=== PATIENT | male | born 1950 | race African-American/Black ===

== ENCOUNTER 2016-05-02 21:06 | Emergency (ER) | payer OTHER ==
[2016-05-02] MEDS ORDERED: XYLOCAINE CARDIAC IV ONE ×2 (22:10→22:21)
[2016-05-02] MEDS ORDERED: AMIDATE IV ONE ×2 (22:10→22:21)
[2016-05-02] MEDS ORDERED: ZEMURON IV ONE ×2 (22:10→22:21)
[2016-05-02] MEDS ORDERED: SUBLIMAZE IV ONE (22:18)
[2016-05-02] MEDS ORDERED: VASELINE LIP THERAPY TP PRN (22:21)
[2016-05-02] MEDS ORDERED: ARTIFICIAL TEARS OPHTH OINT OU PRN (22:21)
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
[2016-05-02 22:34] LABS: Hematocrit 46.1 % (35.5-45.6); Hemoglobin 14.9 gm/dl (11.8-15.2); Mean Corpuscular HGB Conc 32 % (32-34); Mean Corpuscular Hemoglobin 26 pg (28-32); Mean Corpuscular Volume 81 fl (84-94); Platelet Count 276 K/mm3 (140-440); Red Blood Count 5.68 M/mm3 (3.65-5.03); Red Cell Distribution Width 13.9 % (13.2-15.2)
[2016-05-02 22:41] LABS: White Blood Count 24.6 K/mm3 (4.5-11.0)
[2016-05-02 22:44] LABS: INR 0.94 (0.87-1.13)
[2016-05-02 22:45] LABS: Partial Thromboplastin Time 31.8 Sec. (24.2-36.6)
[2016-05-02] MEDS ORDERED: ZOSYN/NS 4.5GM/100ML 4.5 GM/100 ML VIAL IV ONE (22:46)
[2016-05-02 22:55] LABS: ISTAT Base Excess 0; ISTAT HCO3 25.1; ISTAT PCO2 40.4 (35-45); ISTAT PH 7.402 (7.35-7.45); ISTAT PO2 237 (80-105); ISTAT SO2 100; ISTAT TCO2 26
[2016-05-02 22:57] LABS: Urine Drugs of Abuse Note Disclamer
[2016-05-02] MEDS ORDERED: fentaNYL DRIP Premix 2,000 MCG/100 ML BAG IV SCH (23:00)
[2016-05-02 23:16] LABS: Bilirubin,Urine NEG (Negative); Blood,Urine SM (Negative); Ketones,Urine 80 mg/dL (Negative); Leukocyte Esterase,Urine NEG (Negative); Mucus,Urine FEW /HPF; Nitrite,Urine NEG (Negative); Urobilinogen,Urine < 2.0 mg/dL (<2.0)
[2016-05-02 23:30] LABS: Blastocytes % (Manual) 0 %
[2016-05-02 23:31] LABS: Basophils % (Manual) 0 % (0.0-1.8); Eosinophils % (Manual) 0 % (0.0-4.3); Platelet Estimate Consistent w Auto; RBC Morphology Normal
[2016-05-02 23:32] LABS: Diff Status Complete
[2016-05-02] MEDS ORDERED: NACL ONE (23:35)
[2016-05-02 23:58] LABS: Albumin 4.5 g/dL (3.9-5); Albumin/Globulin Ratio 1.1 %; Blood Urea Nitrogen 26 mg/dL (9-20); Calcium 9.1 mg/dL (8.4-10.2); Carbon Dioxide 22 mmol/L (22-30); Chloride 90.9 mmol/L (98-107); Glucose 114 mg/dL (75-100); Sodium 138 mmol/L (137-145); Total Protein 8.6 g/dL (6.3-8.2)
[2016-05-03 00:23] LABS: Alanine Aminotransferase 34 units/L (7-56); Alkaline Phosphatase 110 units/L (35-129); Anion Gap 31 mmol/L
[2016-05-03] MEDS ORDERED: KEPPRA 1,000 MG/NS 0.75% 100ML 1,000 MG/100 ML BAG IV ONE (00:50)
--- NOTE | 2016-05-03 01:27 | Cat Scan Report ---
FINAL REPORT PROCEDURE: CT HEAD/BRAIN WO CON TECHNIQUE: Computerized tomography of the head was performed without contrast material. HISTORY: Trauma COMPARISON: No prior studies are available for comparison. FINDINGS: There is right hemispheric parenchymal hematoma predominantly involving the right basal ganglia and measuring 8 x 4.5 centimeters in diameter. There is mass effect with midline shift of the septum pellucidum 11 millimeters to the left. There is bilateral intraventricular hemorrhage. There is subarachnoid blood in the cortical sulci of the left hemisphere. There is no specific evidence of subfalcine herniation. The basilar cisterns are patent. The intracranial arteries are ectatic. There is intracranial calcified atherosclerosis. There is underlying chronic involutional change and ischemic gliosis. There are old lacunar infarct defects in the left basal ganglia and caudate nucleus. The bony calvarium is intact. No skull fracture is identified. There is mucosal thickening in the paranasal sinuses. IMPRESSION: Large right hemispheric parenchymal hematoma as described along with intraventricular blood and left hemispheric subarachnoid blood. There is mass effect as described. There is no herniation. Doctor Duarte was notified by telephone at 1:20 a.m..
--- NOTE | 2016-05-03 01:32 | Cat Scan Report ---
FINAL REPORT PROCEDURE: CT CERVICAL SPINE WO CON TECHNIQUE: Computerized tomography of the cervical spine was performed from the skull base to T1 without contrast material. HISTORY: Trauma COMPARISON: No prior studies are available for comparison. FINDINGS: The skull base and the foramen magnum are intact. The cervical vertebrae are intact. There are no fractures or malalignments. There is advanced degenerative disc change with osteophytic ridging and facet arthropathy at C5-C6 and C6-C7 with bilateral foraminal stenosis. There is no facet dislocation. The prevertebral soft tissues are normal in thickness. There atelectasis of the right upper lung. IMPRESSION: There are no fractures.. There is advanced degenerative disc change with osteophytic ridging and facet arthropathy at C5-C6 and C6-C7 with bilateral foraminal stenosis. There atelectasis of the right upper lung.
--- NOTE | 2016-05-03 01:39 | Cat Scan Report ---
FINAL REPORT PROCEDURE: CT CHEST W CON TECHNIQUE: Computerized axial tomography of the chest was performed during the IV injection of iodinated nonionic contrast. HISTORY: Trauma COMPARISON: No prior studies are available for comparison. TECHNICAL QUALITY: Satisfactory. FINDINGS: Heart and pericardium: Normal. Thoracic aorta: There is calcified plaque in the thoracic aorta. Ascending thoracic aorta measures 3.8 centimeters. There is no dissection.. Pulmonary vasculature: Normal. Lymph nodes: No enlarged thoracic lymph nodes. Lungs: There is atelectasis of the right upper lung and the left lower lung.. Pleural space: No effusion, thickening, or pneumothorax. Musculoskeletal structures: No significant abnormality. There has been a median sternotomy. Thoracic spine and ribs are intact. Upper abdominal structures: No significant abnormality. IMPRESSION: There is right upper lobe and left lower lobe atelectasis. There is no pulmonary contusion, effusion or pneumothorax. Bony structures are intact. There is no mediastinal hematoma or thoracic aortic injury.
--- NOTE | 2016-05-03 01:52 | Cat Scan Report ---
FINAL REPORT PROCEDURE: CT ABDOMEN PELVIS W CON TECHNIQUE: Computerized axial tomography of the abdomen and pelvis was performed after the IV injection of iodinated nonionic contrast. HISTORY: Trauma COMPARISON: No prior studies are available for comparison. FINDINGS: Liver: Normal size and attenuation. Spleen: Normal size and attenuation. Gallbladder and biliary system: Normal. Pancreas: Normal. Adrenals: Normal. Kidneys: There is a 1 centimeters cyst at the upper pole the right kidney.. GI tract: There is edematous thickening of the stomach antrum. There is no bowel obstruction. There are diverticula of the sigmoid and left colon with mucosal thickening. The appendix is normal.. Lymph nodes and mesentery: Normal. Vasculature: Normal. Bladder: There is a Gill catheter in the urinary bladder. The bladder wall is thickened.. Reproductive organs: Normal. Peritoneum: There is no hemoperitoneum. There is no ascites, free air, abscess or adenopathy.. Musculoskeletal structures: There is an advanced compression deformity of L2 which is most likely old. There is grade 1 anterior spondylolisthesis of L5 over S1 Other: None. IMPRESSION: There is no liver or spleen laceration. There is no hemoperitoneum. There is an old fracture of L2.
[2016-05-03 02:24] VITALS: BP 154/90
--- NOTE | 2016-05-03 07:12 | XRay Report ---
Single view pelvis: History: Trauma. Findings: No definite lytic or blastic lesion or fracture noted. Impression: No evidence of fracture.
--- NOTE | 2016-05-03 07:13 | XRay Report ---
Single view chest: Compared to 05/11/15. History: ET tube placement. Findings: Borderline cardiomegaly. Trachea is midline. Tip of endotracheal tube in normal position. Suspicion of segmental atelectasis right upper lobe. Normal CP angles. Impression: Suspicious segmental atelectasis in right upper lobe.
== END 2016-05-03 02:30 | disposition short-term general hospital (02) ==
LOC: ED 21:06
DX: S06.309A Unspecified focal traumatic brain injury with loss of consciousness of unspecified duration, initial encounter (principal); E11.9 Type 2 diabetes mellitus without complications; I51.9 Heart disease, unspecified
CPT/HCPCS: 31500; 36415; 51702; 70450; 71010; 71260; 72125; 72170; 74177; 80053; 80307; 81001; 82550; 82803; 82962; 84484; 85007; 85025; 85610; 85730; 86850; 86900; 86901; 87040; 87070; 87205; 93005; 93010; 96365; 96366; 96367; 99291; G0480; J1953; J2001; J2543; J3010; Q9967; 80320; 94002